=== PATIENT | female | born 1940 | race Caucasian/White ===

== ENCOUNTER 2017-01-13 09:03 | Outpatient (CLI) ==
[2016-08-23 16:01] VITALS: BMI 32.8
--- NOTE | 2017-01-13 10:00 | US ---
EXAM: Right upper extremity venous Doppler History: Right arm pain. Technique: Multiple sonographic images through the right upper extremity were obtained. Color dupl ex Doppler was used to interrogate vascular flow. Findings: The right jugular, subclavian, axillary, brachial, cephalic, basilic, radial and ulnar veins demonst rate spontaneous flow with normal compression and normal augmentation. Impression: No sonographic evidence for deep venous thrombosis.
== END 2017-01-13 09:04 | disposition home or self-care (01) ==
LOC: RAD 09:03
PROVIDERS: ATTEND Family Medicine
DX: M79.601 Pain in right arm (principal)

== ENCOUNTER 2017-03-17 14:49 | Outpatient (CLI) ==
[2016-08-23 16:01] VITALS: BMI 32.8
--- NOTE | 2017-03-17 15:19 | DI ---
EXAM: Left ribs three views HISTORY: Fall COMPARISON: None TECHNIQUE: Three views left ribs were performed FINDINGS: No left rib fracture identified. No visible pneumothorax. Atherosclerosis aortic arch. P lease see separate report radiograph chest IMPRESSION: No left rib fracture identified.
--- NOTE | 2017-03-17 15:20 | DI ---
Exam: Chest two-view HISTORY: Fell 1 day prior, in the left ribs/chest area of pain. Comparison: 12/21/2011. FINDINGS: Two views of the chest demonstrate moderately expanded lungs with no evidence of pneumoni a or edema. The right costophrenic angle has been excluded from the anterior image. The heart is n ormal in size and configuration. The thoracic aorta is partially calcified. Calcified granulomata are noted. The pulmonary vasculature is not congested. The skeletal structures are intact. There ar e degenerative findings in the spine. IMPRESSION: No acute cardiopulmonary disease. Atherosclerosis and prior granulomatosis. No left rib fracture or dislocation is identified, if this remains a clinical concern then consider a dedicated left rib series.
== END 2017-03-17 14:50 | disposition home or self-care (01) ==
LOC: RAD 14:49
PROVIDERS: ATTEND Family Medicine
DX: E88.89 Other specified metabolic disorders (principal); X19.XXXA Contact with other heat and hot substances, initial encounter

== ENCOUNTER 2018-05-30 14:04 | Outpatient (CLI) ==
[2016-08-23 16:01] VITALS: BMI 32.8
[2018-05-30] MEDS ORDERED: LIDOCAINE HCL 1% SDV IM STA (14:16)
[2018-05-30] MEDS ORDERED: ROCEPHIN IM STA (14:16)
[2018-05-30 14:19] VITALS: BP 111/75; TEMP 98
== END 2018-05-30 14:05 | disposition home or self-care (01) ==
LOC: OPMED 14:04
PROVIDERS: ATTEND Family Medicine
DX: R82.71 Bacteriuria (principal)
CPT/HCPCS: 96372

== ENCOUNTER 2018-05-31 13:53 | Outpatient (CLI) ==
[2016-08-23 16:01] VITALS: BMI 32.8
[2018-05-31 14:06] VITALS: BP 136/56; TEMP 98.7
[2018-05-31] MEDS ORDERED: LIDOCAINE HCL 1% SDV IM STA (14:07)
[2018-05-31] MEDS ORDERED: ROCEPHIN IM STA (14:07)
== END 2018-05-31 13:54 | disposition home or self-care (01) ==
LOC: OPMED 13:53
PROVIDERS: ATTEND Family Medicine
DX: R82.71 Bacteriuria (principal)
CPT/HCPCS: 96372

== ENCOUNTER 2018-06-01 13:45 | Outpatient (CLI) ==
[2016-08-23 16:01] VITALS: BMI 32.8
[2018-06-01 13:54] VITALS: BP 126/66; TEMP 98.2
[2018-06-01] MEDS ORDERED: LIDOCAINE HCL 1% SDV IM STA (13:58)
[2018-06-01] MEDS ORDERED: ROCEPHIN IM STA (13:58)
== END 2018-06-01 13:46 | disposition home or self-care (01) ==
LOC: OPMED 13:45
PROVIDERS: ATTEND Family Medicine
DX: R82.71 Bacteriuria (principal)

== ENCOUNTER 2018-06-02 13:57 | Outpatient (CLI) ==
[2016-08-23 16:01] VITALS: BMI 32.8
[2018-06-02] MEDS ORDERED: ROCEPHIN IM STA (14:10)
[2018-06-02] MEDS ORDERED: LIDOCAINE HCL 1% SDV IM STA (14:10)
[2018-06-02 14:23] VITALS: BP 122/70; TEMP 97.6
== END 2018-06-02 13:58 ==
LOC: OPMED 13:57
PROVIDERS: ATTEND Family Medicine
DX: R82.71 Bacteriuria (principal)
CPT/HCPCS: 96372

== ENCOUNTER 2018-06-03 13:51 | Outpatient (CLI) ==
[2016-08-23 16:01] VITALS: BMI 32.8
[2018-06-03] MEDS ORDERED: ROCEPHIN IM STA (14:10)
[2018-06-03] MEDS ORDERED: LIDOCAINE HCL 1% SDV IM STA (14:10)
[2018-06-03 14:35] VITALS: BP 111/63; TEMP 98.2
== END 2018-06-03 13:52 | disposition home or self-care (01) ==
LOC: OPMED 13:51
PROVIDERS: ATTEND Family Medicine
DX: R82.71 Bacteriuria (principal)
CPT/HCPCS: 96372

== ENCOUNTER 2018-06-04 13:59 | Outpatient (CLI) ==
[2016-08-23 16:01] VITALS: BMI 32.8
[2018-06-04] MEDS ORDERED: ROCEPHIN IM STA (14:15)
[2018-06-04] MEDS ORDERED: LIDOCAINE HCL 1% SDV IM STA (14:15)
[2018-06-04 14:24] VITALS: BP 116/78; TEMP 98.2
== END 2018-06-04 14:00 | disposition home or self-care (01) ==
LOC: OPMED 13:59
PROVIDERS: ATTEND Family Medicine
DX: R82.71 Bacteriuria (principal)
CPT/HCPCS: 96372

== ENCOUNTER 2018-06-05 13:41 | Outpatient (CLI) ==
[2016-08-23 16:01] VITALS: BMI 32.8
[2018-06-05] MEDS ORDERED: LIDOCAINE HCL 1% SDV IM STA (14:13)
[2018-06-05] MEDS ORDERED: ROCEPHIN IM STA (14:13)
[2018-06-05] MEDS ORDERED: ROCEPHIN ONE (14:17)
[2018-06-05 14:26] VITALS: BP 120/70; TEMP 98
== END 2018-06-05 13:42 | disposition home or self-care (01) ==
LOC: OPMED 13:41
PROVIDERS: ATTEND Family Medicine
DX: R82.71 Bacteriuria (principal)
CPT/HCPCS: 96372

== ENCOUNTER 2018-08-11 11:53 | Outpatient (CLI) ==
[2016-08-23 16:01] VITALS: BMI 32.8
--- NOTE | 2018-08-11 16:32 | DI ---
EXAM: Left hand three-view HISTORY: Pain COMPARISON: None FINDINGS: Bones appear demineralized. No fracture or dislocation. Scattered osteoarthritic change throughout the hand with joint space narrowing osteophyte formation, severe at the second, third, fif th DIP joints. Chondrocalcinosis triangular fibrocartilage. IMPERSSION: 1. Advanced osteoarthritis. 2. Bones appear demineralized.
== END 2018-08-11 11:54 | disposition home or self-care (01) ==
LOC: RAD 11:53
PROVIDERS: ATTEND Family Medicine
DX: M79.642 Pain in left hand (principal)

== ENCOUNTER 2019-02-20 07:54 | Day surgery (SDC) | payer OTHER ==
[2016-08-23 16:01] VITALS: BMI 32.8
[2019-02-20] MEDS ORDERED: LIDOCAINE 1% 20 ML MDV ID STA (08:49)
[2019-02-20 08:50] VITALS: TEMP 98.6
[2019-02-20] MEDS ORDERED: DIPRIVAN 20 ML VIAL IVP ONE (09:15)
[2019-02-20] MEDS ORDERED: VERSED ONE (09:15)
[2019-02-20 15:07] VITALS: BP 132/78
--- NOTE | 2019-02-21 12:52 | OP ---
PROCEDURE: COLONOSCOPY TO THE CECUM. ENDOSCOPIST: Kev PATTERSON M.D. INDICATION: HISTORY OF ADENOMATOUS POLYPS. INSTRUMENT: [employer]-190. MEDICATION: PER ANESTHESIA. PROCEDURE: The patient was positioned for colonoscopy. The digital rectal exam was negative. The colonoscope was inserted through the anus and advanced to the cecum. The cecum was identified using the ileocecal valve and the appendiceal orifice as landmarks. The scope was slowly withdrawn through an adequately prepped colon. [place] Bowel Prep Score = 9. Scattered diverticulosis noted throughout the colon. Retroflex exam was normal. Withdrawal time 7 minutes and 54 seconds. PLAN: 1. Suggest repeat colonoscopy as needed. Otherwise we will see her back on a p.r.n basis. cc: Dr. Juancarlos KHALIL
== END 2019-02-20 10:15 | disposition home or self-care (01) ==
LOC: SURG 07:54
PROVIDERS: ATTEND Internal Medicine Gastroenterology
DX: Z86.010 Personal history of colon polyps (principal)
CPT/HCPCS: 00812; G0105